=== PATIENT | female | born 1955 | race Caucasian/White ===

== ENCOUNTER 2022-03-17 08:58 | Outpatient (CLI) | payer MEDICARE | END 2022-03-17 08:59 | disposition home or self-care (01) | LOC: CSHCT 08:58 | PROVIDERS: ATTEND Internal Medicine | DX: Z12.2 Encounter for screening for malignant neoplasm of respiratory organs (principal); F17.210 Nicotine dependence, cigarettes, uncomplicated | CPT/HCPCS: 71271 ==

== ENCOUNTER 2022-04-10 03:48 | Emergency (ER) | payer MEDICARE ==
[2022-04-10] MEDS ORDERED: Morphine 10 MG/ML VIAL ONE (04:24)
== END 2022-04-10 04:37 | disposition home or self-care (01) ==
LOC: CSHERS 03:48
DX: M54.50 Low back pain, unspecified (principal); E78.5 Hyperlipidemia, unspecified; F17.210 Nicotine dependence, cigarettes, uncomplicated; Z79.82 Long term (current) use of aspirin; Z79.899 Other long term (current) drug therapy
CPT/HCPCS: 96372; 99283; J2270

== ENCOUNTER 2023-06-01 08:37 | Outpatient (CLI) | payer MEDICARE | END 2023-06-01 08:38 | disposition home or self-care (01) | LOC: CSHCT 08:37 | PROVIDERS: ATTEND Neurological Surgery | DX: Z01.810 Encounter for preprocedural cardiovascular examination (principal); M43.16 Spondylolisthesis, lumbar region; M47.816 Spondylosis without myelopathy or radiculopathy, lumbar region; M47.817 Spondylosis without myelopathy or radiculopathy, lumbosacral region | CPT/HCPCS: 72131; 93005; 93010 ==

== ENCOUNTER 2024-05-22 07:54 | Outpatient (CLI) | payer MEDICARE ==
[2024-05-22 08:37] VITALS: BP 143/77; TEMP 97.7
[2024-05-22] MEDS ORDERED: Lidocaine 1% PF 5 ML VIAL ONE (08:40)
[2024-05-22] MEDS ORDERED: Sodium Bicarbonate 2.5 MEQ/5 ML SDV ONE (08:40)
== END 2024-05-22 10:40 | disposition home or self-care (01) ==
LOC: CSHRAD 07:54
PROVIDERS: ATTEND Nurse Practitioner Family
DX: M51.16 Intervertebral disc disorders with radiculopathy, lumbar region (principal); Z98.890 Other specified postprocedural states; M43.16 Spondylolisthesis, lumbar region; M48.061 Spinal stenosis, lumbar region without neurogenic claudication; M41.86 Other forms of scoliosis, lumbar region; M48.54XD Collapsed vertebra, not elsewhere classified, thoracic region, subsequent encounter for fracture with routine healing; M46.1 Sacroiliitis, not elsewhere classified
CPT/HCPCS: 62284; 72132; 77003

== ENCOUNTER 2025-03-30 08:29 | Outpatient (CLI) | payer MEDICARE | END 2025-03-30 08:30 | disposition home or self-care (01) | LOC: CSHCT 08:29 | PROVIDERS: ATTEND Internal Medicine | DX: Z12.2 Encounter for screening for malignant neoplasm of respiratory organs (principal); F17.210 Nicotine dependence, cigarettes, uncomplicated | CPT/HCPCS: 71271 ==